=== PATIENT | male | born 1940 | race Caucasian/White ===

== ENCOUNTER 2024-04-19 12:06 | Emergency (ER) | payer MEDICARE, BC ==
[~2024-04-19] VITALS: Ht 175.3 cm; Wt 80.3 kg
[2024-04-19] VITALS (13 sets, daily range): BP systolic 115–140; BP diastolic 52–72
[~2024-04-19 12:06] MED LIST: CEPHALEXIN500 M1 PO
[2024-04-19] MEDS ORDERED: Diph, Acellular Pertussis, Tet 0.5 ML/VIAL (Tdap) SDV IM ONE (13:00)
== END 2024-04-19 16:10 | disposition home or self-care (01) ==
LOC: ED 12:06
DX: S00.81XA Abrasion of other part of head, initial encounter (principal); S50.311A Abrasion of right elbow, initial encounter; S80.212A Abrasion, left knee, initial encounter; S80.211A Abrasion, right knee, initial encounter; W01.0XXA Fall on same level from slipping, tripping and stumbling without subsequent striking against object, initial encounter; Y92.511 Restaurant or cafe as the place of occurrence of the external cause; F03.90 Unspecified dementia, unspecified severity, without behavioral disturbance, psychotic disturbance, mood disturbance, and anxiety; I10 Essential (primary) hypertension; E11.9 Type 2 diabetes mellitus without complications; Z86.73 Personal history of transient ischemic attack (TIA), and cerebral infarction without residual deficits
CPT/HCPCS: 90715